=== PATIENT | female | born 1960 | race Caucasian/White ===

== ENCOUNTER 2018-03-02 13:02 | Emergency (ER) | payer BC ==
[~2018-03-02] VITALS: Ht 160 cm; Wt 117.7 kg
[~2018-03-02 13:02] MED LIST: KEFLEX500 MG PO; NAPROSYN500 MG PO
[2018-03-02 18:39] VITALS: BP 155/60
== END 2018-03-02 18:50 | disposition home or self-care (01) ==
LOC: EME 13:02
DX: I80.01 Phlebitis and thrombophlebitis of superficial vessels of right lower extremity (principal); Z86.718 Personal history of other venous thrombosis and embolism; F17.200 Nicotine dependence, unspecified, uncomplicated; R06.02 Shortness of breath
CPT/HCPCS: 93970; 99281; 99283